=== PATIENT | male | born 1965 | race Caucasian/White ===

== ENCOUNTER 2025-08-13 06:14 | Day surgery (SDC) | payer MEDICARE, OTHER, SELFPAY | END 2025-08-13 09:00 | disposition home or self-care (01) | LOC: GI 06:14 | PROVIDERS: ATTENDING PHYSICIAN Internal Medicine Gastroenterology | DX: Z12.11 Encounter for screening for malignant neoplasm of colon (principal); Z53.9 Procedure and treatment not carried out, unspecified reason | CPT/HCPCS: 45378; G0378 ==

== ENCOUNTER 2025-08-28 06:24 | Day surgery (SDC) | payer MEDICARE, OTHER, SELFPAY | END 2025-08-28 13:18 | disposition home or self-care (01) | LOC: GI 06:24 | PROVIDERS: ATTENDING PHYSICIAN Internal Medicine Gastroenterology | DX: Z12.11 Encounter for screening for malignant neoplasm of colon (principal); K57.30 Diverticulosis of large intestine without perforation or abscess without bleeding; K64.8 Other hemorrhoids; K63.5 Polyp of colon; K22.2 Esophageal obstruction; R13.10 Dysphagia, unspecified | CPT/HCPCS: 45380; 43235; 88305 ==